=== PATIENT | female | born 1950 | race Caucasian/White ===

== ENCOUNTER → 2018-06-12 | Outpatient (REF) | LOC: ZLAB.WCH 09:11 | DX: Z01.89 Encounter for other specified special examinations (principal) ==

== ENCOUNTER → 2019-11-07 | Outpatient (CLI) | payer MEDICARE | LOC: COL.VAS 13:52 | DX: R01.1 Cardiac murmur, unspecified (principal) ==

== ENCOUNTER 2023-04-15 09:18 | Day surgery (SDC) | payer MEDICARE ==
[~2023-04-15] VITALS: Ht 157.5 cm; Wt 77.0 kg
[~2023-04-15 09:18] MED LIST: LR 1,000 ML IV SCH; Ondansetron 4 MG/2 ML VIAL IV PRN
[2023-04-15] MEDS ORDERED: LIPITOR 10MG10 MG PO (09:44)
[2023-04-15] MEDS ORDERED: MUCINEX 60600 MG/TA1 PO (09:45)
[2023-04-15] MEDS ORDERED: IMODIUM 2MG CAPS2 MG PO (09:46)
[2023-04-15 09:47] VITALS: BP 134/82; PULSE 68; TEMP 98
--- NOTE | 2023-04-15 09:49 | NUR ---
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 To place PIV and await procedure.
[2023-04-15 11:22] VITALS: BP 150/67; PULSE 67; TEMP 97.8
[2023-04-15 11:35] VITALS: BP 134/74; PULSE 67
--- NOTE | 2023-04-15 17:22 | NUR ---
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 D/C INSTRUCTIONS, ANY FOLLOW UP REVIEWED AND HANDED TO PT. ALL QUESTIONS AND CONCERNS ADDRESSED TO PT SATISFACTION. TAKEN TO EXIT VIA W/C WITH ALL BELONGINGS AND PAPERWORK IN HAND, ASSISTED INTO PASSENGER SEAT OF POV. FAMILY TO DRIVE HOME.
== END 2023-04-15 12:15 | disposition home or self-care (01) ==
LOC: SDCO 09:18
DX: Z12.11 Encounter for screening for malignant neoplasm of colon (principal); D12.2 Benign neoplasm of ascending colon
CPT/HCPCS: J2704; J7120